=== PATIENT | female | born 1975 | race Caucasian/White ===

== ENCOUNTER → 2017-05-11 | Outpatient (CLI) | payer SELFPAY | END | disposition home or self-care (01) | LOC: LABWHC1 07:57 | PROVIDERS: ATTEND Surgery | DX: Z52.4 Kidney donor (principal) | CPT/HCPCS: 86900; 86901 ==

== ENCOUNTER → 2017-07-17 | Outpatient (CLI) | payer SELFPAY ==
[2017-07-17 10:07] LABS: EKG EKG PERFORMED
[2017-07-17 11:19] LABS: Basophils % (A) 1 %; CH 29.5; CHCM 32.6; Eosinophils # (A) 0.1 k/uL (0-0.7); Eosinophils % (A) 2 %; HCT 43.3 % (34.0-46.0); HDW 2.26; HGB 14.6 gm/dL (11.4-16.0); Luc # (Auto) 0.16; Luc % (Auto) 2; Lymphocytes # (A) 2.2 k/uL (1.0-4.8); Lymphocytes % (A) 26 %; MCH 30.7 pg (25.0-35.0); MCHC 33.8 g/dL (31.0-37.0); MCV 90.9 fL (80.0-100.0); Monocytes # (A) 0.6 k/uL (0-1.0); Monocytes % (A) 7 %; Neutrophils # (A) 5.2 k/uL (1.3-7.7); Neutrophils % (A) 63 %; RBC 4.77 m/uL (3.80-5.40); RDW 12.5 % (11.5-15.5); WBC 8.3 k/uL (3.8-10.6); WBC (Perox) 8.68
[2017-07-17 11:21] LABS: Appearance,Urine Cloudy (Clear); Bacteria,Urine Rare /hpf; Bilirubin,Urine Negative (Negative); Glucose,Urine (UA) Negative (Negative); Ketones,Urine Negative (Negative); Leukocyte Esterase,Urine Negative (Negative); Mucus,Urine Few /hpf; Nitrite,Urine Negative (Negative); PH, Urine 5.5 (5.0-8.0); Particle Count 11144; Protein,Urine Negative (Negative); Squamous Epithelial Cell,Urine 17 /hpf (0-4); UA Billing (MACRO vs. MICRO) MICRO; Urobilinogen,Urine <2.0 mg/dL (<2.0); WBC,Urine 10 /hpf (0-5)
[2017-07-17 11:28] LABS: INR 1.1 (<1.2); Partial Thromboplastin Time 23.8 sec (22.0-30.0); Prothrombin Time 10.6 sec (9.0-12.0)
[2017-07-17 11:34] LABS: ALT 49 U/L (9-52); AST 25 U/L (14-36); Alkaline Phosphatase 71 U/L (38-126); Anion Gap 7 mmol/L; Bilirubin, Delta 0.1 mg/dL (0.0-0.2); Blood Urea Nitrogen 13 mg/dL (7-17); Calcium 9.4 mg/dL (8.4-10.2); Carbon Dioxide 24 mmol/L (22-30); Chloride 108 mmol/L (98-107); Cholesterol 169 mg/dL (<200); GGT 52 U/L (12-43); Glucose 81 mg/dL (74-99); HDL Cholesterol 46 mg/dL (40-60); LDH 483 U/L (313-618); Non-African American GFR(MDRD) >60 (>60 ml/min/1.73 sqM); Phosphorous 3.4 mg/dL (2.5-4.5); Potassium 4.6 mmol/L (3.5-5.1); Sodium 139 mmol/L (137-145); Total Bilirubin 0.7 mg/dL (0.2-1.3); Total Protein 6.5 g/dL (6.3-8.2)
[2017-07-17 12:03] LABS: Hepatitis B Surface Ag Index 0.05
[2017-07-17 12:20] LABS: Hepatitis C Virus IgG Ab Negative (Negative); Hepatitis C Virus IgG Index 0.01
--- NOTE | 2017-07-17 12:53 | XR ---
EXAMINATION TYPE: XR chest 2V DATE OF EXAM ORDERED: 07/17/2017 HISTORY: Z52.4 KIDNEY DONOR. REFERENCE: None. FINDINGS: The lungs are clear. Pleural spaces are clear. Heart size is normal. IMPRESSION: NORMAL CHEST.
[2017-07-17 16:30] LABS: Urine Creatinine 173.5 mg/dL
[2017-07-17 17:24] LABS: Treponemal Ab Non-Reactive (Non-Reactive)
[2017-07-17 17:32] LABS: Hemoglobin A1C 5.3 % (4.2-6.1)
[2017-07-17 18:16] LABS: Hepatitis B Surface Antibody Non-Reactive (Non-Reactive)
[2017-07-19 14:35] LABS: West Nile Virus IgM Antibody 0.02 INDEX (<0.90)
[2017-07-19 14:52] LABS: Hepatits C Virus RNA, Quant <12 IU/mL (<12); LOG HCV IU/mL <1.08 (<1.08)
[2017-07-20 06:23] LABS: EBV - EA (IgG) 16.3 U/mL (<9.0); EBV - VCA (IgG) >750.0 U/mL (<18.0); EBV - VCA IgM <10.0 U/mL (<36.0)
== END | disposition home or self-care (01) ==
LOC: LABWHC1 09:57
PROVIDERS: ATTEND Transplant Surgery
DX: Z13.6 Encounter for screening for cardiovascular disorders (principal); Z13.83 Encounter for screening for respiratory disorder NEC; Z52.4 Kidney donor
CPT/HCPCS: 36415; 71020; 80053; 80061; 81001; 81050; 82043; 82248; 82570; 82575; 82977; 83036; 83615; 84100; 84156; 84702; 85025; 85610; 85730; 86480; 86644; 86663; 86664; 86665; 86704; 86705; 86706; 86780; 86788; 86789; 86803; 87086; 87340; 87390; 87522; 93005

== ENCOUNTER → 2017-11-20 | Outpatient (CLI) | payer BC ==
[2017-11-20 10:34] LABS: ALT 48 U/L (9-52); AST 29 U/L (14-36); Albumin 3.9 g/dL (3.5-5.0); Alkaline Phosphatase 67 U/L (38-126); Anion Gap 5 mmol/L; Basophils % (A) 1 %; Blood Urea Nitrogen 17 mg/dL (7-17); Calcium 9.3 mg/dL (8.4-10.2); Carbon Dioxide 29 mmol/L (22-30); Chloride 106 mmol/L (98-107); Cholesterol 179 mg/dL (<200); Eosinophils # (A) 0.1 k/uL (0-0.7); Eosinophils % (A) 2 %; Glucose 90 mg/dL (74-99); HCT 42.3 % (34.0-46.0); HDL Cholesterol 46 mg/dL (40-60); HGB 13.4 gm/dL (11.4-16.0); LDL Cholesterol,Calculated 113 mg/dL (0-99); Lymphocytes % (A) 31 %; MCH 29.4 pg (25.0-35.0); MCHC 31.8 g/dL (31.0-37.0); MCV 92.7 fL (80.0-100.0); Mean Platelet Volume 7.9; Monocytes # (A) 0.5 k/uL (0-1.0); Monocytes % (A) 8 %; Neutrophils # (A) 3.5 k/uL (1.3-7.7); Neutrophils % (A) 55 %; Platelet Count 277 k/uL (150-450); Potassium 4.6 mmol/L (3.5-5.1); RBC 4.56 m/uL (3.80-5.40); RDW 13.6 % (11.5-15.5); Sodium 140 mmol/L (137-145); Total Bilirubin 0.5 mg/dL (0.2-1.3); Total Protein 6.2 g/dL (6.3-8.2); Triglycerides 102 mg/dL (<150); WBC 6.4 k/uL (3.8-10.6)
== END | disposition home or self-care (01) ==
LOC: LABWHC1 09:52
PROVIDERS: ATTEND Family Medicine
DX: Z00.00 Encounter for general adult medical examination without abnormal findings (principal); E66.9 Obesity, unspecified; F41.1 Generalized anxiety disorder
CPT/HCPCS: 36415; 80053; 80061; 84443; 85025

== ENCOUNTER → 2017-11-25 | Outpatient (CLI) | payer OTHER, BC ==
--- NOTE | 2017-11-25 09:08 | MM ---
Reason for exam: screening (asymptomatic). Baseline mammogram. History: Family history of breast cancer in paternal grandmother at age 60. Physical Findings: Nurse did not find any significant physical abnormalities on exam. MG Screening Mammo w CAD Bilateral CC and MLO view(s) were taken. The breast tissue is heterogeneously dense. This may lower the sensitivity of mammography. There is a mass in the right upper outer quadrant at posterior depth, possibly related to a lymph node. Right upper outer quadrant ultrasound will be performed. These results were verbally communicated with the patient and result sheet given to the patient on 11/25/17. ASSESSMENT: Incomplete: need additional imaging evaluation, BI-RAD 0 RECOMMENDATION: Ultrasound of the right breast. [facility] will attempt to contact patient to return for ultrasound.
--- NOTE | 2017-11-25 09:09 | USB ---
Reason for exam: additional evaluation requested from abnormal screening. History: Family history of breast cancer in paternal grandmother at age 60. Physical Findings: Breast exam preformed at baseline screening. US Breast Workup Limited RT Right breast ultrasound demonstrates a 0.5 x 0.4cm questionable lymph node at 10 o'clock. Benign lymph nodes. These results were verbally communicated with the patient and result sheet given to the patient on 11/25/17. ASSESSMENT: Benign, BI-RAD 2 RECOMMENDATION: Return to routine screening mammogram schedule for both breasts.
== END | disposition home or self-care (01) ==
LOC: RADMAMWWP 07:02
PROVIDERS: ATTEND Family Medicine
DX: Z12.31 Encounter for screening mammogram for malignant neoplasm of breast (principal); R92.8 Other abnormal and inconclusive findings on diagnostic imaging of breast
CPT/HCPCS: 77067

== ENCOUNTER → 2017-12-13 | Outpatient (CLI) | payer OTHER | LOC: LABWHC1 07:32 | PROVIDERS: ATTEND Surgery | DX: Z53.9 Procedure and treatment not carried out, unspecified reason (principal) ==